=== PATIENT | female | born 1985 | race Caucasian/White ===

== ENCOUNTER 2019-12-24 01:59 | Emergency (ER) | payer MEDICAID ==
[~2019-12-24] VITALS: Ht 167.6 cm; Wt 146.2 kg
[2019-12-24 02:04] VITALS: BP 138/71
[2019-12-24] MEDS ORDERED: CITA40TA5 PO (02:04)
[2019-12-24] MEDS ORDERED: OXYB5TAB10 PO (02:04)
[2019-12-24] MEDS ORDERED: PRAZ2CAP2 PO (02:04)
[2019-12-24] MEDS ORDERED: CYCL-259 PO (02:04)
--- NOTE | 2019-12-24 02:04 | NUR ---
34Y F BIB EMS TRANSFER FROM [place] FOR MRI FOLLOWING SHARP BACK PAIN AND LOSS OF SENSATION IN R LOWER EXTREM. PT NOW ABLE TO SLIGHTLY MOVE TOES ON R FOOT, PER PT UNABLE TO DO THIS EARLIER. PT WAS CONNECTED TO MONITORING VSS, RESP EVEN AND UNLABORED, PT DENIES ALL URINARY SYMPTOMS AND BOWEL INCON.
--- NOTE | 2019-12-24 02:36 | NUR ---
MRI SCREENING FORM COMPLETED AND SENT WITH RAY. PER RAY TEAM TO BE CALLED IN FOR MRI AT THIS TIME
[2019-12-24] MEDS ORDERED: ONDANSETRON 2MG/ML, 2ML IVPush ONE (03:30)
[2019-12-24] MEDS ORDERED: MORPHINE SULFATE 4 MG/ML, 1ML IVPush PRN (03:30)
[2019-12-24] MEDS ORDERED: SODIUM CHLORIDE FLUSH 10ML SYR IVF ONE (03:30)
[2019-12-24] MEDS ORDERED: ONDANSETRON 2MG/ML, 2ML ONE (03:55)
[2019-12-24] MEDS ORDERED: MORPHINE SULFATE 4 MG/ML, 1ML ONE (03:55)
--- NOTE | 2019-12-24 03:58 | NUR ---
PT BACK FROM MRI C/O PAIN PT MEDICATED PER GIOVANNI
--- NOTE | 2019-12-24 05:15 | NUR ---
PT DC WITH SISTER PT STS SHE HAS A WALKER AT HOME. PT AMUBLATED TO WHEELCHAIR NO ASSIST REQ. PIV DC, PT EDUCATED ON DC INSTRUCTIONS ALL QUESTIONS ADDRESSED
== END 2019-12-24 05:37 | disposition home or self-care (01) ==
LOC: ED 02:29
DX: S39.012A Strain of muscle, fascia and tendon of lower back, initial encounter (principal); M54.41 Lumbago with sciatica, right side; E66.01 Morbid (severe) obesity due to excess calories; Z68.41 Body mass index [BMI] 40.0-44.9, adult; X58.XXXA Exposure to other specified factors, initial encounter; Y93.89 Activity, other specified; Y92.89 Other specified places as the place of occurrence of the external cause; Y99.8 Other external cause status
CPT/HCPCS: 72148; 96374; 96375; 99284; J2270; J2405